=== PATIENT | male | born 1960 | race Caucasian/White ===

== ENCOUNTER 2023-05-21 18:44 | Emergency (ER) | payer MEDICARE, BC, SELFPAY ==
[2023-05-21 18:46] VITALS: BP 132/76; PULSE 94; RESP 18; TEMP 36.6; O2SAT 98; BMI 33.4
--- NOTE | 2023-05-21 18:49 | EKG12_ITS ---
Test Reason : FALL Blood Pressure : / mmHG Vent. Rate : 089 BPM Atrial Rate : 089 BPM P-R Int : 164 ms QRS Dur : 088 ms QT Int : 380 ms P-R-T Axes : 035 000 014 degrees QTc Int : 462 ms Normal sinus rhythm Normal ECG Confirmed by NYA MICHELLE MD ([id number]), digital editor DEACON MEJIA ([id number]) on 05/23/2023 1:53:36 PM Referred By: Confirmed By:NYA MICHELLE MD
[2023-05-21 19:16] LABS: Absolute Lymphocyte Count 2.18 X10^3/uL (0.83-4.51); Absolute Neutrophil Count 6.4 X10^3/uL (2.0-7.7); Basophil# 0.08 X10^3/uL; Basophil% 0.8 % (0-1); Eosinophil# 0.15 X10^3/uL; Eosinophils% 1.5 % (0-5); Hematocrit 42.7 % (40-54); Lymphocyte # 2.18 X10^3/ul (0.83-4.51); Lymphocyte % 22.4 % (19-41); Mean Corp Hgb Conc 32.8 g/dL (32-36); Mean Corpuscular Hgb 29.7 pg (27.0-32.0); Mean Corpuscular Volume 90.7 fL (80-94); Mean Platelet Vol. 10.3 fl (6.2-12.0); Monocyte# 0.88 X10^3/uL; NRBC Flagged by Analyzer 0 % (0-5); Neutrophil # 6.44 X10^3/uL (2.7-7.7); Neutrophil % 66.1 % (47-70); Platelet Count 275 K/mm3 (150-450); RBC Distribution Width CV 12.8 % (11.6-14.6); RBC Distribution Width SD 42.2 fl (35.1-43.9); Red Blood Count 4.71 M/mm3 (4.6-6.2); White Blood Count 9.8 K/mm3 (4.4-11.0)
--- NOTE | 2023-05-21 19:19 | CT_ITS ---
STUDY: CT BRAIN WITHOUT CONTRAST REASON FOR EXAM: Male, 63 years old. Trauma RADIATION DOSAGE (If Supplied By Facility): CTDIvol = ( 44.99 ) mGy, DLP = ( 846.73 ) mGycm TECHNIQUE: Transaxial CT imaging of the brain was performed without administration of intravenous contrast material. Individualized dose optimization techniques were used for this CT. COMPARISON: No relevant priors. FINDINGS: Right posterior lateral scalp swelling/hematoma at the vertex measuring 1.3 cm in thickness. Normal calvarium. Normal size ventricles and extra-axial spaces for the patient''s age. Normal white matter tracts of the cerebral hemispheres. Normal basal ganglia and thalami. Normal brainstem. Normal cerebellum. There is no intracranial hemorrhage. There are no findings of an acute ischemic infarction. Minimal mucosal thickening of the right maxillary sinus, bilateral ethmoids and right frontal sinus, otherwise normal visualized paranasal sinuses. CT/Brain/Head without Contrast IMPRESSION: Normal unenhanced CT scan of the brain. Right posterior lateral scalp swelling/hematoma with no skull fracture. Electronically Signed: Nancy Lerma MD at 19:54 EDT ,
--- NOTE | 2023-05-21 19:20 | ED.VIS.FALL ---
HPI HPI - Fall History of Present Illness Chief Complaint: Fall Informant: patient and spouse/S.O. Narrative Narrative: The patient presents after syncopal episode. Patient was feeling fine at home. He used a vape pen and inhaled OG Mor. This is something new for the patient. He does not even normally vape. He just retired in September. 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 Since then he has been experimenting. He smokes marijuana daily. This was something new he tried. He took a big inhalation of this. It made him cough significantly. He then was walking toward the door and just passed out fell backwards and hit his head. His states he stiffened for a moment. There is a fine tremor but no shaking. He then did wake up pretty quickly and get himself up. She states he seems just a little bit paranoid now. But other than that he feels and is acting back to his normal self. He is not on blood thinners. He does have a slight headache and an abrasion on the back of his head. No chest pain or palpitations at any time. He is not short of breath now. [facility] Medical History (Updated 05/21/23 @ 22:[address] Ricardo Smith MD) Hypertension Hypothyroidism Allergy/AdvReac Type Severity Reaction Status Date / Time No Known Allergies Allergy Verified 05/21/23 18:46 Social History Smoking Status: Never smoker EXAM Physical Exam Narrative Exam Narrative: A complete review of systems was performed and is negative except as documented in the history of present illness. Some specific details below. Constitutional: No recent fevers or chills. EYE: No discharge, visual complaints, or pain. ENT: No difficulty swallowing. No swelling. No pain. No reflux symptoms. He does have some soreness on the posterior right scalp where he hit. CV: Denies known chest pain or palpitations. Respiratory: No dyspnea. He did have coughing after inhaling this vape chemical. But that has stopped and he feels his breathing is normal. GI: No abdominal pain. No nausea vomiting diarrhea. No blood in stool. No stool incontinence : No frequency dysuria or hematuria. Wojciech incontinence Musculoskeletal: Did hit his head. He states nothing else hurts. Skin: No rash. Nondiaphoretic. Abrasion on the scalp. Neuro: No focal weakness or numbness. Seemed just a little bit paranoid per his . Endocrine: No polyuria or polydipsia. Const Vital Signs: 05/21/23 18:46 05/21/23 18:55 Temperature 97.9 F Temperature Source Temporal Pulse Rate 94 Respiratory Rate 18 Respiratory Effort Normal Respiratory Depth Normal Respiratory Pattern Normal Blood Pressure 132/76 H Blood Pressure Mean 94 Pulse Ox 98 Oxygen Delivery Method Room Air Room Air MDM MDM MDM Narrative Medical decision making narrative: BC shows no marked abnormalities. Patient's electrolytes do show mild elevation in the creatinine prior to compare to. We are going to give him IV fluids but he has been drinking water here with no problem. His glucose was minimally elevated. But this can be rechecked and does not need acute treatment. My independent her potation the CAT scan of the head shows no intracranial injury but does show the swelling consistent with his exam. Final reading is similar. Patient's been watched here. His heart rate staying about 65-75 on the monitor with no notable ectopy. He feels well. We will get him up and walk. As long as he is stable and comfortable walking we will get him home. His family is with him here in feels he looks better now also. I think his symptoms were likely caused by the significant episode of coughing essentially causing a vasovagal type reaction. I think he has mild mental status change afterwards may have been due to combination of marijuana smoked and what ever chemical is in this vape that he purchased. It is meant to make people evidently very relaxed laughing and calm. Walked well. He felt as though he may be under the influence of something but felt stable and good and felt well enough to go home and wanted to go home. Lab Data Attestation: I reviewed the patient's lab results. Labs: Laboratory Results - last 24 hr 05/21/23 19:08 WBC 9.8 RBC 4.71 Hgb 14.0 Hct 42.7 MCV 90.7 MCH 29.7 MCHC 32.8 RDW Std Deviation 42.2 RDW Coeff of Radha 12.8 Plt Count 275 MPV 10.3 Immature Gran % (Auto) 0.200 Neut % (Auto) 66.1 Lymph % (Auto) 22.4 Barry % (Auto) 9.0 Eos % (Auto) 1.5 Baso % (Auto) 0.8 Absolute Neuts (auto) 6.4 Absolute Lymphs (auto) 2.18 Nucleated RBC % 0 Sodium 138 Potassium 3.6 Chloride 106 Carbon Dioxide 28.0 Anion Gap 4 L BUN 18 Creatinine 1.54 H Estim Creat Clear Calc 46.27 Est GFR (MDRD) Af Amer 59 L Est GFR (MDRD) Non-Af 48 L BUN/Creatinine Ratio 11.7 Glucose 131 H Calcium 8.4 L Radiography Diagnostic Testing: Clinical Impression(s) from Imaging Studies Brain CT 05/21/23 19:19 IMPRESSION: Normal unenhanced CT scan of the brain. Right posterior lateral scalp swelling/hematoma with no skull fracture. Electronically Signed: Nancy Lerma MD at 19:54 EDT , EKG Initial EKG: Comments: Depend interpretation of the patient's EKG done for syncope shows a normal sinus rhythm rate controlled at 89. No ectopy. No acute ST elevation or depression. KS interval, QRS duration, QTc are all within normal limits. Discharge Plan Triage Chief Complaint: Fall ED Provider: Ricardo Smith Dx/Rx/DC Orders Clinical Impression: Vapes non-nicotine containing substance, Closed head injury, Syncope Instructions: ED Fainting, Uncertain Cause Primary Care Provider: [facility] ,Out of Referrals: [facility] Doctor,Out of [Primary Care Provider] - Activity Restrictions/Additional Instructions: Follow-up with your doctor if not feeling completely resolved in the next 1 to 3 days. Disposition Disposition: Home, Self Care
[2023-05-21 19:34] LABS: Anion Gap 4 (5-15); BUN 18 mg/dL (7-18); BUN/Creat Ratio 11.7 RATIO (10-20); Calcium,Total 8.4 mg/dL (8.5-10.1); Chloride 106 mmol/L (98-107); Creatinine, Serum 1.54 mg/dL (0.70-1.30); EST Glomerular Filtration Rate 48 mL/min (>60); Est Glom Filt Rate - Afr Amer 59 mL/min (>60); Estimated Creatinine Clearance 46.27 ml/min; Glucose 131 mg/dL (74-106); Potassium 3.6 mmol/L (3.5-5.1); Sodium Level 138 mmol/L (136-145)
[2023-05-21 19:45] VITALS: BP 124/78; PULSE 89; RESP 18; O2SAT 99
[2023-05-21 20:45] VITALS: BP 124/74; PULSE 79; RESP 18; O2SAT 99
[2023-05-21 22:37] VITALS: BP 121/74; PULSE 72; RESP 16; O2SAT 98
== END 2023-05-21 22:42 | disposition home or self-care (01) ==
PROVIDERS: Emergency Provider Emergency Medicine; Visit Provider Emergency Medicine
DX: S00.91XA Abrasion of unspecified part of head, initial encounter (principal); I10 Essential (primary) hypertension; R73.9 Hyperglycemia, unspecified; R55 Syncope and collapse; X58.XXXA Exposure to other specified factors, initial encounter
CPT/HCPCS: 70450; 80048; 85025; 93005; 99282; A4216

== ENCOUNTER 2025-03-23 13:06 | Emergency (ER) | payer MEDICARE, BC, SELFPAY ==
[2025-03-23] VITALS (16 sets, daily range): BP systolic 107–134; BP diastolic 70–94; PULSE 45–55; RESP 0–16; TEMP 35.5–36.9; O2SAT 97–100; BMI 34.3
--- NOTE | 2025-03-23 13:14 | RAD_ITS ---
EXAM: XR Chest, 2 Views CLINICAL INDICATION: CHEST PAIN TECHNIQUE: Frontal and lateral views of the chest. COMPARISON: No relevant prior studies available. FINDINGS: LUNGS AND PLEURAL SPACES: Unremarkable. No consolidation. No pneumothorax. HEART: Unremarkable. No cardiomegaly. MEDIASTINUM: Unremarkable. Normal mediastinal contour. BONES/JOINTS: Unremarkable. No acute fracture. RAD/Chest PA and Lateral IMPRESSION: No acute cardiopulmonary process. Reading Location: [facility]
--- NOTE | 2025-03-23 13:15 | EKG12_ITS ---
Test Reason : DIZZINESS Blood Pressure : */* mmHG Vent. Rate : 49 BPM Atrial Rate : 49 BPM P-R Int : 160 ms QRS Dur : 90 ms QT Int : 456 ms P-R-T Axes : -13 9 22 degrees QTcB Int : 411 ms Sinus bradycardia Otherwise normal ECG Confirmed by MIGUEL ANGEL JONES, NYA ([id number]), news copy editor DEACON MEJIA ([id number]) on 03/24/2025 2:15:15 PM Referred By: Memo Duran Confirmed By: NYA MICHELLE MD
[2025-03-23] MEDS: 0.9% Normal Saline (1000mL) 1,000 ML 999 ML IV ×2 (13:49→15:07)
[2025-03-23 13:52] LABS: Hematocrit 41.5 % (40-54); Hemoglobin 14.0 g/dL (13.0-16.5); Immature Granulocytes Count 0.020 X10^3/uL (0.0-0.0); Mean Corp Hgb Conc 33.7 g/dL (32-36); Mean Corpuscular Volume 88.9 fL (80-94); Mean Platelet Vol. 10.3 fl (6.2-12.0); NRBC Flagged by Analyzer 0 % (0-5); Platelet Count 245 K/mm3 (150-450); RBC Distribution Width CV 12.6 % (11.6-14.6); RBC Distribution Width SD 41.0 fl (35.1-43.9); Red Blood Count 4.67 M/mm3 (4.6-6.2); White Blood Count 6.4 K/mm3 (4.4-11.0)
--- NOTE | 2025-03-23 14:03 | EX.ED.DYSGE1 ---
HPI History of Present Illness Chief Complaint: Dizziness Narrative Narrative: Patient is a 65-year-old male with past medical history of hypertension, hypothyroidism who presented to the emergency department chief complaint of lightheadedness. Patient states that he was outside working in the garage when he became very lightheaded and sweating. Per patient's at bedside he came in the house saying that he was not feeling well she noted that he was sweating profusely and notes that when he lifted his arms off the counter there was sweat underneath his arms. Patient states that he had been feeling well overall the past few days. In the triage note it stated that he was dizzy however after clarification he was not dizzy he was not having spinning sensation he states that he was lightheaded. [facility] Medical History Glaucoma Hypothyroidism Hypertension Allergy/AdvReac Type Severity Reaction Status Date / Time No Known Allergies Allergy Verified 03/23/25 13:07 Social History Smoking Status: Never smoker ROS ROS ED ROS Narrative constitutional: Complains of lightheadedness and diaphoresis as noted above denies headache, dizziness, fevers, chills Eyes: Denies double vision blurry vision change in vision Cardiovascular: Denies chest pain or palpitations Respiratory: Denies coughing wheezing shortness of breath Abdomen: Denies nausea vomit diarrhea : Denies any urinary symptoms Neurological: Denies any numbness, wheeze, tingling Musculoskeletal: Denies back pain Skin: Denies any rashes or lesions EXAM Physical Exam Narrative Exam Narrative: General: Patient was lying in bed rest comfortably did not appear to be in acute distress Head: Atraumatic, normocephalic Eyes: PERRL bilaterally, EOMI by, no conjunctival injection noted Neck: Soft, supple, trachea midline Cardiovascular: Patient is bradycardic with a regular rhythm no murmurs gallops rubs are noted Respiratory: Clear to auscultation bilaterally Abdomen: Soft, nondistended, tender to palpation Extremities: +5/5 strength noted in the bilateral upper and lower extremities, radial pulses +2/4 in the bilateral extremities Neurological: Patient following commands knew that he was at [facility] years 2024 Skin: Warm, dry, intact no rashes or lesions noted Const Vital Signs: 03/23/25 13:08 03/23/25 13:13 03/23/25 13:44 Temperature 96 F L Temperature Source Temporal Pulse Rate 53 L Pulse Rate [Lying] 48 L Pulse Rate [Sitting (for 1 minute prior to obtaining)] 53 L Pulse Rate [Standing (for 1 minute prior to obtaining)] 55 L Respiratory Rate 16 Blood Pressure 130/75 H Blood Pressure [Lying] 112/70 Blood Pressure [Sitting (for 1 minute prior to obtaining)] 117/73 Blood Pressure [Standing (for 1 minute prior to obtaining)] 115/76 Blood Pressure Mean 93 Blood Pressure Mean [Lying] 84 Blood Pressure Mean [Sitting (for 1 minute prior to obtaining)] 87 Blood Pressure Mean [Standing (for 1 minute prior to obtaining)] 89 Pulse Ox 99 98 Oxygen Delivery Method Room Air Room Air 03/23/25 13:47 03/23/25 14:08 03/23/25 14:15 Temperature Temperature Source Pulse Rate 51 L 47 L 46 L Pulse Rate [Lying] Pulse Rate [Sitting (for 1 minute prior to obtaining)] Pulse Rate [Standing (for 1 minute prior to obtaining)] Respiratory Rate 11 L 15 14 Blood Pressure 115/76 122/80 H Blood Pressure [Lying] Blood Pressure [Sitting (for 1 minute prior to obtaining)] Blood Pressure [Standing (for 1 minute prior to obtaining)] Blood Pressure Mean 88 93 Blood Pressure Mean [Lying] Blood Pressure Mean [Sitting (for 1 minute prior to obtaining)] Blood Pressure Mean [Standing (for 1 minute prior to obtaining)] Pulse Ox 97 98 97 Oxygen Delivery Method 03/23/25 14:30 03/23/25 14:45 03/23/25 15:00 Temperature Temperature Source Pulse Rate 45 L 47 L 49 L Pulse Rate [Lying] Pulse Rate [Sitting (for 1 minute prior to obtaining)] Pulse Rate [Standing (for 1 minute prior to obtaining)] Respiratory Rate 0 L 4 L 13 Blood Pressure 126/80 H 128/88 H 134/80 H Blood Pressure [Lying] Blood Pressure [Sitting (for 1 minute prior to obtaining)] Blood Pressure [Standing (for 1 minute prior to obtaining)] Blood Pressure Mean 95 101 97 Blood Pressure Mean [Lying] Blood Pressure Mean [Sitting (for 1 minute prior to obtaining)] Blood Pressure Mean [Standing (for 1 minute prior to obtaining)] Pulse Ox 97 98 98 Oxygen Delivery Method 03/23/25 15:13 03/23/25 15:15 03/23/25 15:30 Temperature Temperature Source Pulse Rate 49 L 47 L 45 L Pulse Rate [Lying] Pulse Rate [Sitting (for 1 minute prior to obtaining)] Pulse Rate [Standing (for 1 minute prior to obtaining)] Respiratory Rate 12 2 L 10 L Blood Pressure 131/94 H 116/83 H 113/79 Blood Pressure [Lying] Blood Pressure [Sitting (for 1 minute prior to obtaining)] Blood Pressure [Standing (for 1 minute prior to obtaining)] Blood Pressure Mean 106 93 90 Blood Pressure Mean [Lying] Blood Pressure Mean [Sitting (for 1 minute prior to obtaining)] Blood Pressure Mean [Standing (for 1 minute prior to obtaining)] Pulse Ox 99 99 98 Oxygen Delivery Method 03/23/25 15:45 03/23/25 16:02 Temperature Temperature Source Pulse Rate 46 L 52 L Pulse Rate [Lying] Pulse Rate [Sitting (for 1 minute prior to obtaining)] Pulse Rate [Standing (for 1 minute prior to obtaining)] Respiratory Rate 11 L 16 Blood Pressure 119/73 Blood Pressure [Lying] Blood Pressure [Sitting (for 1 minute prior to obtaining)] Blood Pressure [Standing (for 1 minute prior to obtaining)] Blood Pressure Mean 86 Blood Pressure Mean [Lying] Blood Pressure Mean [Sitting (for 1 minute prior to obtaining)] Blood Pressure Mean [Standing (for 1 minute prior to obtaining)] Pulse Ox 99 98 Oxygen Delivery Method MDM MDM MDM Narrative Medical decision making narrative: Patient is a 65-year-old male who presented to the emergency department chief complaint of lightheadedness and diaphoresis. On the differential diagnosis includes but not limited to hypoglycemia, cardiac arrhythmia, ACS, electrolyte abnormality. Once workup is obtained reviewed he will be reevaluated. Patient be given IV fluids. Patient's orthostatic vital signs were obtained and negative. Patient bedside glucose was normal. Patient's CBC reviewed showed no evidence leukocytosis white blood count normal at 6.4, hemoglobin 14, platelet count was noted be 245. Patient INR was 1, PT of 12.9. Patient sodium is 138, potassium 3.7, creatinine was 1.42 appears to be around his baseline, magnesium level normal at 2.2, troponin was 16 with a delta troponin of 15. Patient TSH normal at 0.70. Patient's EKG showed sinus bradycardia with a rate of 49 bpm with a QTc of 411. [id number] glucose was noted be 77 and on his chemistry panel glucose was noted to be 75. Patient's chest x-ray reviewed and showed no acute cardiopulmonary processes. Nursing notified me that the patient was complaining of a headache therefore added on a CT head as well as give him medications. Patient CT head showed no acute intracranial abnormalities. Patient ambulated here in the emergency department during ambulation his heart rate went from the upper 40s low 50s to mid 60s and when he came back to the room and sat down his heart rate returned to around 47 bpm. Patient states that he feels much better. I discussed case with on-call [facility]va still operator Dr. Donaldson who states the patient go home and have a stress test in the outpatient setting. He was advised to return with worsening symptoms or any other concerns. Patient and significant other at bedside agreeable with this plan all question concerns answered he is discharged home in stable condition. Lab Data Labs: Laboratory Results - last 24 hr 03/23/25 03/23/25 03/23/25 13:30 13:33 15:24 WBC 6.4 RBC 4.67 Hgb 14.0 Hct 41.5 MCV 88.9 MCH 30.0 MCHC 33.7 RDW Std Deviation 41.0 RDW Coeff of Radha 12.6 Plt Count 245 MPV 10.3 Immature Gran % (Auto) 0.300 Neut % (Auto) 59.6 Lymph % (Auto) 24.8 Mcdonald % (Auto) 12.7 H Eos % (Auto) 1.7 Baso % (Auto) 0.9 Absolute Neuts (auto) 3.8 Absolute Lymphs (auto) 1.58 Nucleated RBC % 0 PT 12.9 INR 1.0 APTT 30.4 Sodium 138 Potassium 3.7 Chloride 103 Carbon Dioxide 25.2 Anion Gap 10 BUN 19 Creatinine 1.42 H Estim Creat Clear Calc 58.55 Est GFR (MDRD) Non-Af 54 L BUN/Creatinine Ratio 13.0 Glucose 75 Calcium 8.8 Magnesium 2.2 Troponin T High Sens 16 Troponin T Hi Sens 2 Hr 15 TSH 0.704 POC Glucose 77 Radiography Diagnostic Testing: Clinical Impression(s) from Imaging Studies Chest X-Ray 03/23/25 13:14 IMPRESSION: No acute cardiopulmonary process. Reading Location: [facility] Brain CT 03/23/25 15:44 IMPRESSION: No acute intracranial abnormality. Reading Location: [id number] Discharge Plan Triage Chief Complaint: Dizziness ED Provider: Memo Duran Dx/Rx/DC Orders Clinical Impression: Lightheaded, Bradycardia, sinus Primary Care Provider: Tremaine Castro Referrals: Tremaine Castro MD [Primary Care Provider] - Activity Restrictions/Additional Instructions: Follow-up with your primary care physician outpatient setting. Have a stress test obtained. Your blood work here today did not show any acute findings. Your chest x-ray and your head CT were normal. Return with worsening symptoms or any concerns Print Language: [place] Disposition Disposition: Home, Self Care
[2025-03-23 14:13] LABS: Prothrombin Time (Protime)PT. 12.9 SECONDS (11.7-14.9)
[2025-03-23 14:14] LABS: Partial Thromboplast Time 30.4 Seconds (24.1-36.2)
[2025-03-23 14:58] LABS: Anion Gap 10 (5-15); BUN 19 mg/dL (4-19); BUN/Creat Ratio 13.0 RATIO (10-20); Calcium,Total 8.8 mg/dL (7.6-11.0); Carbon Dioxide 25.2 mmol/L (21.0-32.0); Chloride 103 mmol/L (98-108); Estimated Creatinine Clearance 58.55 ml/min (50-250); Glucose 75 mg/dL (70-99); Magnesium 2.2 mg/dL (1.5-2.2); Potassium 3.7 mmol/L (3.3-5.1); Troponin T High Sensitivity 16 ng/L (<=22)
--- NOTE | 2025-03-23 15:44 | CT_ITS ---
PROCEDURE: BRAIN/HEAD WITHOUT CONTRAST 03/23/2025 REASON FOR EXAM: HEADACHE TECHNIQUE: BRAIN/HEAD WITHOUT CONTRAST Coronal and Sagittal reconstruction series were provided. One or more dose reduction techniques were used (e.g., Automated exposure control, adjustment of the mA and/or kV according to patient size, use of iterative reconstruction technique. RADIATION DOSE SUMMARY: CTDlvol: 44.99 mGy DLP: 812.98 mGycm COMPARISON: CT head 05/21/2023. FINDINGS: No acute intracranial hemorrhage, extra-axial collection, mass effect or evidence of acute infarct. Ventricles and subarachnoid spaces are normal in size. Prior bilateral cataract surgery. Intact skull base and calvarium. Well-aerated paranasal sinuses and mastoid air cells. CT/Brain/Head without Contrast IMPRESSION: No acute intracranial abnormality. Reading Location: [id number]
[2025-03-23 16:44] LABS: Troponin T High Sens 2 HR 15 ng/L (<=22)
== END 2025-03-23 17:17 | disposition home or self-care (01) ==
PROVIDERS: Emergency Provider Emergency Medicine; PCP Family Medicine; Referring Provider Emergency Medicine; Visit Provider Emergency Medicine
DX: R42 Dizziness and giddiness (principal); R00.1 Bradycardia, unspecified; I10 Essential (primary) hypertension; E03.9 Hypothyroidism, unspecified; R61 Generalized hyperhidrosis; R51.9 Headache, unspecified
CPT/HCPCS: 70450; 71046; 80048; 82962; 83735; 84443; 84484; 85025; 85610; 85730; 93005; 96361; 96374; 99285; A4216